=== PATIENT | male | born 1975 | race African-American/Black ===

== ENCOUNTER 2016-10-27 21:57 | Emergency (ER) | payer SELFPAY ==
[~2016-10-27] VITALS: Ht 182.9 cm; Wt 69.4 kg
[~2016-10-27 21:57] MED LIST: APIX5TAB PO; Aspirin PO; DIGO250T PO; Lisinopril PO; Metoprolol Tartrate PO; SIMV10TA3 PO
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
[2016-10-27] MEDS ORDERED: IV NORMAL SALINE 1000ML BAG 1,000 ML IV SCH (22:15)
[2016-10-27 22:28] LABS: BASO # 0.1 x10^3/uL (0.0-0.2); BASO % 1 % (0-3); EOS % 1 % (0-3); HEMATOCRIT 41.3 % (39.0-53.0); HEMOGLOBIN 13.6 g/dL (13.0-17.5); LYMPH # 1.7 x10^3/uL (1.0-4.8); LYMPH % 28 % (24-48); MEAN CORPUSCULAR HEMOGLOBIN 30 pg (25-35); MEAN CORPUSCULAR HGB CONC 33 g/dL (31-37); MEAN CORPUSCULAR VOLUME 91 fL (79-100); MONO % 7 % (0-9); NEUT % 63 % (31-73); PLATELET COUNT 187 x10^3/uL (140-400); RED BLOOD COUNT 4.53 x10^6/uL (4.30-5.70); RED CELL DISTRIBUTION WIDTH 15.2 % (11.5-14.5); WHITE BLOOD COUNT 5.9 x10^3/uL (4.0-11.0)
[2016-10-27 22:42] LABS: CALCIUM 8.9 mg/dL (8.5-10.1); CREATININE 1.1 mg/dL (0.7-1.3); GFR 89.7; POTASSIUM 3.9 mmol/L (3.5-5.1)
[2016-10-27 22:48] LABS: ALBUMIN 3.9 g/dL (3.4-5.0); DIRECT BILIRUBIN 0.1 mg/dL (0.0-0.2); TOTAL BILIRUBIN 0.5 mg/dL (0.2-1.0); TOTAL PROTEIN 6.9 g/dL (6.4-8.2)
[2016-10-27 22:55] LABS: CKMB MASS 2.1 ng/mL (0.0-3.6)
[2016-10-27 23:00] LABS: BILIRUBIN,URINE SMALL (NEG); GLUCOSE,URINE NEGATIVE (NEG); NITRITE,URINE NEGATIVE (NEG); PH,URINE 5.5; PROTEIN,URINE NEGATIVE (NEG-TRACE)
[2016-10-27 23:05] LABS: RBC,URINE 0 /HPF (0-2)
[2016-10-27 23:06] LABS: BACTERIA,URINE 0 /HPF (0-FEW); SQUAMOUS EPITHELIAL CELL,UR OCC /LPF; WBC,URINE RARE /HPF (0-4)
[2016-10-27 23:07] LABS: BARBITURATES NEG (NEG); BENZODIAZEPINES NEG (NEG); CANNABINOIDS POS (NEG); COCAINE NEG (NEG); METHADONE NEG (NEG); OPIATES NEG (NEG); PHENCYCLIDINE POS (NEG)
[2016-10-28 01:00] VITALS: BP 141/93
--- NOTE | 2016-10-28 06:12 | EKG ---
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
--- NOTE | 2016-10-28 08:04 | RAD ---
Portable chest, 10/27/2016: History: Altered mental status The heart size and pulmonary vascularity are normal. The lungs are clear. There is no evidence of pleural fluid. IMPRESSION: No acute cardiopulmonary abnormality is detected.
== END 2016-10-28 01:28 | disposition home or self-care (01) ==
LOC: ER 21:57
DX: F16.10 Hallucinogen abuse, uncomplicated (principal); F17.210 Nicotine dependence, cigarettes, uncomplicated
CPT/HCPCS: 36415; 71010; 80048; 80076; 80307; 80329; 81001; 82553; 83690; 83735; 83880; 84443; 84484; 85025; 93005; 96360; 96361; 99285; G0480; J7030; G0479

== ENCOUNTER 2021-05-10 13:39 | Emergency (ER) | payer SELFPAY ==
[~2021-05-10] VITALS: Ht 185.4 cm; Wt 79.5 kg
[~2021-05-10 13:39] MED LIST changes: -DIGO250T PO; +DIGO250T3 PO; +SIMV10TA15 PO; -SIMV10TA3 PO
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
[2021-05-10 15:38] LABS: BARBITURATES NEG (NEG); BENZODIAZEPINES NEG (NEG); CANNABINOIDS POS (NEG); COCAINE NEG (NEG); METHADONE NEG (NEG); OPIATES NEG (NEG); PHENCYCLIDINE POS (NEG)
[2021-05-10 15:40] LABS: AMPHETAMINE/METHAMPHETAMINE NEG (NEG)
[2021-05-10 15:42] LABS: BASO % 1 % (0-3); EOS # 0.1 x10^3/uL (0.0-0.7); EOS % 3 % (0-3); HEMATOCRIT 43.7 % (39.0-53.0); HEMOGLOBIN 14.2 g/dL (13.0-17.5); LYMPH # 1.4 x10^3/uL (1.0-4.8); LYMPH % 37 % (24-48); MEAN CORPUSCULAR HEMOGLOBIN 30 pg (25-35); MEAN CORPUSCULAR HGB CONC 32 g/dL (31-37); MEAN CORPUSCULAR VOLUME 91 fL (79-100); MONO # 0.4 x10^3/uL (0.0-1.1); MONO % 11 % (0-9); NEUT # 1.8 x10^3/uL (1.8-7.7); NEUT % 48 % (31-73); PLATELET COUNT 198 x10^3/uL (140-400); RED BLOOD COUNT 4.81 x10^6/uL (4.30-5.70); RED CELL DISTRIBUTION WIDTH 14.7 % (11.5-14.5); WHITE BLOOD COUNT 3.8 x10^3/uL (4.0-11.0)
[2021-05-10 15:52] LABS: HYALINE CASTS, URINE FEW /HPF
[2021-05-10 15:53] LABS: BACTERIA,URINE 0 /HPF (0-FEW); RBC,URINE 0 /HPF (0-2); WBC,URINE OCC /HPF (0-4)
--- NOTE | 2021-05-10 15:58 | RAD ---
Lumbar spine 3 views. HISTORY: Abrasions to back, possible injury AP and lateral views were taken of the lumbar spine. Lumbar spines in normal alignment. Disc spaces a re normal in height. A fracture is not identified. There is moderate stool in the colon. IMPRESSION: 1. Negative lumbar spine. Electronically signed by: Kofi Miles MD (05/10/2021 3:56 PM) [facility]
[2021-05-10 16:02] LABS: CALCIUM 9.1 mg/dL (8.5-10.1); CREATININE 1.1 mg/dL (0.7-1.3); GFR 87.6; POTASSIUM 4.2 mmol/L (3.5-5.1)
[2021-05-10 16:11] LABS: ALBUMIN 3.7 g/dL (3.4-5.0); ALBUMIN/GLOBULIN RATIO 1.1 (1.0-1.7); TOTAL BILIRUBIN 0.3 mg/dL (0.2-1.0); TOTAL PROTEIN 7.2 g/dL (6.4-8.2)
[2021-05-10 22:00] VITALS: BP 146/104
--- NOTE | 2021-05-11 07:57 | EKG ---
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
== END 2021-05-10 22:04 | disposition home or self-care (01) ==
LOC: ER 13:39
DX: S30.810A Abrasion of lower back and pelvis, initial encounter (principal); F17.200 Nicotine dependence, unspecified, uncomplicated; F60.0 Paranoid personality disorder; X58.XXXA Exposure to other specified factors, initial encounter; Y93.89 Activity, other specified; Y92.89 Other specified places as the place of occurrence of the external cause; Y99.8 Other external cause status
CPT/HCPCS: 36415; 72100; 80053; 80307; 81001; 84484; 85025; 87491; 87591; 93005; 99285; G0480